=== PATIENT | female | born 1985 | race African-American/Black ===

== ENCOUNTER 2022-03-16 15:08 | Emergency (ER) | payer MEDICAID ==
[~2022-03-16] VITALS: Ht 172.7 cm; Wt 145.0 kg
[2022-03-16 15:49] VITALS: BP 131/75
== END 2022-03-16 17:14 | disposition left against medical advice (07) ==
LOC: ER 15:47
DX: Z53.21 Procedure and treatment not carried out due to patient leaving prior to being seen by health care provider (principal)
CPT/HCPCS: 93005